=== PATIENT | female | born 1980 | race Caucasian/White ===

== ENCOUNTER 2019-10-15 18:56 | Emergency (ER) | payer OTHER, SELFPAY ==
[2019-10-15 19:25] VITALS: BP 136/64; PULSE 115; RESP 18; TEMP 37; O2SAT 100
--- NOTE | 2019-10-15 20:22 | ED.HA ---
HPI - Headache General Chief Complaint: Upper Respiratory Infection Stated Complaint: FEVER BODY ACHES Time Seen by Provider: 10/15/19 19:35 Source: patient Mode of arrival: ambulatory Limitations: no limitations History of Present Illness HPI Narrative: This is a 38 year old female that presents to the ER for migraine since this morning. Associated with nausea and vomiting. Reports history of migraines and that she takes Fioricet for this. Reports she has a neurologist that she sees. Reports yesterday she had a fever and was having myalgias and fatigue. Reports a similar sickness in her child a week ago. Denies vision changes, abdominal pain, numbness or weakness. Related Data Allergies Allergy/AdvReac Type Severity Reaction Status Date / Time morphine Allergy Intermediate chest pain Verified 10/15/19 19:44 cephalexin Allergy Unknown Rash Verified 10/15/19 19:44 sumatriptan Allergy Unknown Headache Verified 10/15/19 19:44 ENVIRONMENTAL ALLERGENS Allergy Unknown Itching Uncoded 06/29/19 15:29 Review of Systems Review of Systems: Narrative: CONSTITUTIONAL: Reports fever, chills EYES: Denies visual changes ENT: Denies rhinorrhea, congestion, sore throat, or otalgia. CARDIOVASCULAR: Denies chest pain RESPIRATORY: Denies cough or dyspnea. GASTROINTESTINAL: Reports nausea and vomiting. Denies abdominal pain MUSCULOSKELETAL: Reports myalgia. NEUROLOGIC: Reports headache. Denies numbness, or weakness. All systems reviewed & are unremarkable except as noted in HPI and below PMFSH Past Medical History Medical History (Updated 10/15/19 @ 20:25 by Ami Feldman PA-C) Anemia Angina at rest Anxiety Asthma CHF (congestive heart failure) Depression Epilepsy Genital herpes HTN (hypertension) Inguinal hernia rt side, 2004 Kidney stones Migraines cardiomyopathy Ruptured ovarian cyst Seizures Shingles 2013 Umbilical hernia 2006 UTI (urinary tract infection) Surgical History Surgical History (Updated 06/29/19 @ 15:51 by Chantelle Angel) History of inguinal hernia repair rt side, 2004 History of umbilical hernia repair 2006 Family History Family History (Updated 04/16/14 @ 07:13 by DOCTOR UNKNOWN) Mother Hypertension Other Diabetes mellitus Social History Social History (Updated 06/29/19 @ 15:55 by Chantelle Angel) Smoking status: Former smoker Additional smoking assessment comments: Quit in 2008 Alcohol intake: never Gender identity (if verbalized by the patient): Female Exam Narrative: Exam Narrative: GENERAL: Well-appearing, thin, and in no acute distress. HEAD: Normocephalic, atraumatic. EYES: PERRLA and EOMI. ENT: Nares clear, no rhinorrhea or epistaxis. Mucous membranes moist. Oropharynx without tonsillar hypertrophy exudate or other lesions. Bilateral TMs pearly bautista non-bulging NECK: Supple. No adenopathy or masses. Normal ROM CHEST: Clear to auscultation. No respiratory distress. No wheezes rales or rhonchi HEART: Regular rate and rhythm. No murmur heard. Normal peripheral pulses. EXTREMITIES: Normal range of motion. No edema. SKIN: Warm, dry, no rash. NEURO: No focal deficits. Alert and oriented x3. Cranial nerves II through XII grossly intact. Normal [id number] PSYCH: Normal mood and affect Course Vital Signs Vital signs: Vital Signs Temperature 98.6 F 10/15/19 19:25 Pulse Rate 115 H 10/15/19 19:25 Respiratory Rate 18 10/15/19 19:25 Blood Pressure 136/64 10/15/19 19:25 Pulse Oximetry 100 10/15/19 19:25 Temperature 98.6 F 10/15/19 19:25 Pulse Rate 115 H 10/15/19 19:25 Respiratory Rate 18 10/15/19 19:25 Blood Pressure 136/64 10/15/19 19:25 Pulse Oximetry 100 10/15/19 19:25 MDM - Headache MDM Narrative Medical decision making narrative: Patient presents to the emergency department for migraine headache since this morning. Patient has history of migraines. She is afebrile and nontoxic-appearing. Patient is neurologica
== END 2019-10-15 20:30 | disposition home or self-care (01) ==
PROVIDERS: Emergency Provider Emergency Medicine; PCP Family Medicine
DX: G43.909 Migraine, unspecified, not intractable, without status migrainosus (principal); F41.9 Anxiety disorder, unspecified; J45.909 Unspecified asthma, uncomplicated; I11.0 Hypertensive heart disease with heart failure; I50.9 Heart failure, unspecified; G40.909 Epilepsy, unspecified, not intractable, without status epilepticus
CPT/HCPCS: 87804; 99283

== ENCOUNTER 2020-05-27 22:53 | Emergency (ER) | payer OTHER, SELFPAY ==
[2020-05-27 22:55] VITALS: BP 144/79; PULSE 107; RESP 20; TEMP 35.8; O2SAT 100
--- NOTE | 2020-05-28 00:26 | PC.NURSE ---
pt walked out without saying anything to RN, boyfriend then came to desk stating they were leaving. charge nurse aware.
== END 2020-05-28 00:36 | disposition left against medical advice (07) ==
LOC: ANHED 05-28 00:29
PROVIDERS: PCP Family Medicine
DX: G43.909 Migraine, unspecified, not intractable, without status migrainosus (principal)
CPT/HCPCS: 99199

== ENCOUNTER 2021-11-25 20:05 | Emergency (ER) | payer OTHER, SELFPAY ==
[2021-11-25] VITALS (7 sets, daily range): BP systolic 121–139; BP diastolic 81–86; PULSE 102–110; RESP 13–18; TEMP 36.1; O2SAT 98–100
--- NOTE | 2021-11-25 20:40 | ED.GENADULT ---
HPI - General Adult General Chief complaint: Headache Stated complaint: MIGRAINE,N/V Time Seen by Provider: 11/25/21 20:33 Source: patient and family Limitations: no limitations History of Present Illness HPI narrative: 40-year-old female with history of migraines presenting to the emergency department for evaluation of a typical migraine. Patient states over the last few days she felt that she has had a migraine developing. Patient states over the course of the day the migraine had come on strongly. Patient states it is on the left which is where her headaches typically start. Patient does have associated nausea and vomiting which she states is typical for her bad migraines. Patient denies any change in vision. Patient denies any fevers or neck pain. Patient states this migraine is atypical due to its intensity but is similar in its location and symptoms. Related Data Allergies Allergy/AdvReac Type Severity Reaction Status Date / Time morphine Allergy Intermediate chest pain Verified 10/15/19 19:44 cephalexin Allergy Unknown Rash Verified 10/15/19 19:44 sumatriptan Allergy Unknown Headache Verified 10/15/19 19:44 ENVIRONMENTAL ALLERGENS Allergy Unknown Itching Uncoded 06/29/19 15:29 Review of Systems Review of Systems: CONSTITUTIONAL: Denies fever, chills, or sweats. EYES: Denies visual changes, redness, or discharge. ENT: Denies rhinorrhea, congestion, sore throat, or otalgia. CARDIOVASCULAR: Denies chest pain, palpitations, or edema. RESPIRATORY: Denies cough or dyspnea. GASTROINTESTINAL: No abdominal pain. Patient does have associated nausea and vomiting from the migraine. GENITOURINARY: Denies dysuria or hematuria. SKIN: Denies rash or itching. MUSCULOSKELETAL: Denies back pain, joint pain, or myalgia. NEUROLOGIC: Left-sided headache [facility] Past Medical History Medical History (Updated 11/26/21 @ 01:17 by Josue Thompson MD) Anemia Angina at rest Anxiety Asthma CHF (congestive heart failure) Depression Epilepsy Genital herpes HTN (hypertension) Inguinal hernia rt side, 2004 Kidney stones Migraines cardiomyopathy Ruptured ovarian cyst Seizures Shingles 2013 Umbilical hernia 2006 UTI (urinary tract infection) Surgical History Surgical History (Updated 06/29/19 @ 15:51 by Chantelle Angel) History of inguinal hernia repair rt side, 2004 History of umbilical hernia repair 2006 Family History Family History (Updated 04/16/14 @ 07:13 by DOCTOR UNKNOWN) Mother Hypertension Other Diabetes mellitus Social History Social History (Updated 06/29/19 @ 15:55 by Chantelle Angel) Smoking status: Former smoker Additional smoking assessment comments: Quit in 2008 Alcohol intake: never Gender identity (if verbalized by the patient): Female Exam Narrative: APPEARANCE: Well appearing, no pain, no distress, well-nourished. HEAD: normocephalic, atraumatic. EYES: PERRLA/EOMI, conjunctivae clear. NOSE: Normal no drainage EARS:TMS clear with good light reflex. THROAT: Pharynx clear, no exudate. NECK: Supple. No adenopathy, no masses. RESPIRATORY: Airway patent, respirations nonlabored. Clear to auscultation bilaterally, no rales, rhonchi, wheezing. CARDIOVASCULAR: Regular rate and rhythm without murmurs rubs or gallops. ABDOMINAL: Soft, nontender, nondistended, normal bowel sounds MUSCULOSKELETAL: Moves all extremities. Strength/ROM intact, No edema, No calf tenderness. NEURO: Alert. Cranial nerves II through XII intact. Grossly intact. No drift or ataxia. Normal coordination. SKIN: Warm, dry. Normal Color Course Reevaluation(s) Reevaluation #1: Patient does feel significantly improved with treatment. Patient's heart rate has improved. Patient will be treated with a second liter of normal saline. Patient states that she does feel improved enough for discharge to home. Vital Signs Vital signs: Vital Signs Temperature 97 F L 11/25/21 20:07 Pulse Rate 110 H
[2021-11-25 20:45] LABS: Basophils Percent Auto 0.4 % (0.2-1.2); Eosinophils Absolute Auto 0.1 K/mm3 (0-0.3); Eosinophils Percent Auto 1.8 % (0-4.4); Hematocrit 38.6 % (37.0-47.0); Hemoglobin 12.5 g/dL (12.0-15.0); Immature Granulocyte Absolute 0.01 K/mm3 (0.00-0.031); Immature Granulocyte Percent A 0.1 % (0-0.5); Lymphocytes Absolute Auto 1.15 K/mm3 (0.9-3.2); Lymphocytes Percent Auto 15.9 % (18.3-44.2); Mean Corpuscular HGB Conc 32.4 g/dl (32-36); Mean Corpuscular Hemoglobin 29.5 pg (26-34); Mean Platelet Volume 10.1 fl (7.4-10.4); Monocytes Absolute Auto 0.6 K/mm3 (0.1-0.6); Monocytes Percent Auto 8.6 % (2.6-8.5); Neutrophils Absolute Auto 5.3 K/mm3 (1.3-6.7); Neutrophils Percent Auto 73.2 % (45.5-73.1); Platelet Count Result 279 k/mm3 (150-375); Red Blood Count 4.24 M/mm3 (4.2-5.4); Red Cell Distribution Width 12.4 % (11.5-14.5); White Blood Count 7.2 K/mm3 (4.5-10.0)
[2021-11-25] MEDS: diphenhydrAMINE HCl INJ 50 MG/ML VIAL 25 MG IV PUSH (20:46)
[2021-11-25] MEDS: PROCHLORPERAZINE EDISYLATE 10 MG/2 ML VIAL IV PUSH (20:47)
[2021-11-25] MEDS: SODIUM CHLORIDE 0.9% IV 1,000 ML 999 ML IV CONT ×2 (20:47→22:15)
[2021-11-25] MEDS: SODIUM CHLORIDE 0.9% IV 200 ML 500 ML (20:49)
[2021-11-25 20:54] LABS: Alanine Aminotransferase 24 U/L (4-35); Albumin Level 4.4 g/dL (3.5-5.1); Alkaline Phosphatase 112 U/L (38-126); Anion Gap 9 mmol/L (8-16); Aspartate Amino Transferase 33 U/L (14-36); Bilirubin,Total 0.2 mg/dL (0.2-1.3); Blood Urea Nitrogen 15 mg/dL (7-17); Carbon Dioxide 23 mmol/L (22-30); Chloride 104 mmol/L (98-107); Estimated CRCL calculation 70 ml/min; Estimated Glomerular Filt Rate > 60; Glucose 114 mg/dL (65-110); Potassium 3.5 mmol/L (3.4-5.0); Sodium 136 mmol/L (137-145)
[2021-11-25 20:55] LABS: Add Urine Microscopic? YES; Appearance Urine Cloudy (Clear); Bilirubin Urine Negative (Negative); Blood Urine 1+ (Negative); Color Urine Yellow (Yellow); Glucose Urine UA Negative (Negative); Ketones Urine 1+ mg/dL (Negative); Leukocyte Esterase Ur Negative LEU/UL (Negative); Mucus Urine Moderate /lpf; Nitrate Urine Negative (Negative); Protein Urine Negative (Negative); Specific Grav Ur 1.027 (1.001-1.035); Squamous Epithelial Cell Urine Many /hpf (Few); Urobilinogen Urine Negative mg/dL (<2.0)
[2021-11-25] MEDS: KETOROLAC 15 MG/ML VIAL (*BKC) IV PUSH (21:25)
== END 2021-11-25 23:15 | disposition home or self-care (01) ==
PROVIDERS: Emergency Provider Emergency Medicine; PCP Family Medicine
DX: G43.909 Migraine, unspecified, not intractable, without status migrainosus (principal); I50.9 Heart failure, unspecified; I11.0 Hypertensive heart disease with heart failure; J45.909 Unspecified asthma, uncomplicated; G40.909 Epilepsy, unspecified, not intractable, without status epilepticus; Z87.442 Personal history of urinary calculi; Z87.440 Personal history of urinary (tract) infections; Z86.2 Personal history of diseases of the blood and blood-forming organs and certain disorders involving the immune mechanism
CPT/HCPCS: 36415; 80053; 81001; 81025; 85025; 96361; 96374; 96375; 99284; J0780; J1200; J1885; J7030